=== PATIENT | female | born 1985 | race Caucasian/White ===

== ENCOUNTER 2017-03-18 05:27 | Outpatient (CLI) | payer BC ==
[~2017-03-18] VITALS: Ht 165.1 cm; Wt 107.0 kg
[~2017-03-18 05:27] MED LIST: Docusate Sodium PO; FERR325C PO; Hydrocodone Bit/Acetaminophen PO; IBUP800T26 PO; PREN-93 PO
[2017-03-19] MEDS ORDERED: IBUP-1773 PO (10:53)
[2017-03-19] MEDS ORDERED: Methylergonovine Maleate PO (10:53)
[2017-03-19] MEDS ORDERED: HYDR-3812 PO (10:53)
== END 2017-03-18 11:37 ==
LOC: PREOP 05:27
PROVIDERS: ATTEND Obstetrics & Gynecology
DX: Z01.818 Encounter for other preprocedural examination (principal); O02.0 Blighted ovum and nonhydatidiform mole

== ENCOUNTER 2017-03-19 09:22 | Day surgery (SDC) | payer BC ==
[~2017-03-19] VITALS: Ht 165.1 cm; Wt 107.0 kg
[2017-03-19] MEDS ORDERED: ceFAZolin 1 GM/NS 50 ML IVPB IV ONE ×2 (09:45)
[2017-03-19] MEDS ORDERED: LACTATED RINGERS 1,000 ML IV PRN (09:50)
[2017-03-19] MEDS ORDERED: LACTATED RINGERS 1,000 ML IV ONE (09:56)
[2017-03-19] MEDS ORDERED: DEXAMETHASONE 10 MG/ML (DECADRON) 1 ML VIAL ONE (09:56)
[2017-03-19] MEDS ORDERED: SEVOFLURANE (ULTANE) 15 ML INHAL SOLN ONE (09:56)
[2017-03-19] MEDS ORDERED: fentaNYL INJECTION 100 MCG/2 ML AMP ONE (09:56)
[2017-03-19] MEDS ORDERED: ONDANSETRON 4 MG/2 ML (SDV) Z0FRAN ONE (09:56)
[2017-03-19] MEDS ORDERED: LIDOCAINE PF 2% 5 ML (XYLOCAINE) VIAL ONE (09:56)
[2017-03-19] MEDS ORDERED: proPOfol 200 MG/20 ML (DIPRIVAN) VIAL IV ONE (09:56)
[2017-03-19] MEDS ORDERED: MIDAZOLAM 2 MG/2 ML (VERSED) VIAL ONE (09:56)
--- NOTE | 2017-03-19 09:56 | Progress Note-Pre Operative ---
Pre-Operative Progress Note H&P Reviewed The H&P was reviewed, patient examined and no changes noted. Date Seen by Provider: Mar 19, 2017 Time Seen by Provider: 10:00 Date H&P Reviewed: Mar 19, 2017 Time H&P Reviewed: 07:30 Pre-Operative Diagnosis: miss , blighted ovum DENISSE REEDER DO Mar 19, 2017 09:56
[2017-03-19] MEDS ORDERED: ONDANSETRON 4 MG/2 ML (SDV) Z0FRAN IV ONE (10:15)
[2017-03-19] MEDS ORDERED: FAMOTIDINE 20MG/2ML IV (PEPCID) IV ONE (10:15)
[2017-03-19] MEDS ORDERED: KETOROLAC 30 MG/ML VIAL IVP ONE ×2 (10:40→11:00)
--- NOTE | 2017-03-19 10:52 | Operative Report ---
Operative Report Date of Procedure/Surgery Mar 19, 2017 Surgeon (s) DENISSE REEDER DO Manager Of Sustainability (s): none Post-Operative Diagnosis blighted ovum Procedure Performed suction dilation and curettage Description of Procedure Anesthesia Type: General Estimated blood loss (mL): 50 Specimen(s) collected/removed products of conception Description of the Procedure with informed consent, the patient was taken to the operating where general anesthesia was found to be adequate. she was then prepped and draped in the usual sterile fashion. A straight cath was used to catheterize the bladder. Speculum was placed in the vagina. The cervix was closed. The anterior lip of the cervix was grasped with a tenaculum. The cervix was gently dilated with Hubert dilators. I then inserted an 8 curved suction curette and a gentle suction curette was done removing products of conception. I then followed this with a sharp curette until a gritty texture was felt and followed this with a final suction curette to remove any additional debris. The tenaculum was removed from the cervix. The patient was awakened and taken to the recovery room in a stable condition. There was minimal bleeding Sponge and instrument count was correct times 2. Findings of the Procedure closed cervix products of conception Allergies and Home Medications Allergies Coded Allergies: Penicillins (Unverified Allergy, Intermediate, HIVES, 06/25/14) Home Medications Hydrocodone/Acetaminophen 1 Each Tablet, 1 TAB PO Q4H PRN for PAIN-MODERATE, #12 Prescribed by: DENISSE REEDER on 03/19/17 1053 Ibuprofen 600 Mg Tablet, 600 MG PO Q6HR, #40 Prescribed by: DENISSE REEDER on 03/19/17 1053 [Methylergonovine Maleate] 0.2 MG TAB, 0.2 MG PO QID, #12 take until gone Prescribed by: DENISSE REEDER on 03/19/17 1053 DENISSE REEDER DO Mar 19, 2017 10:52
[2017-03-19] MEDS ORDERED: HYDR-3812 PO (10:53)
[2017-03-19] MEDS ORDERED: IBUP-1773 PO (10:53)
[2017-03-19] MEDS ORDERED: Methylergonovine Maleate PO (10:53)
--- NOTE | 2017-03-19 10:55 | Discharge Inst-Women's Service ---
Discharge Inst-Women's Serv Depart Medication/Instructions New, Converted or Re-Newed RX: RX on Chart Final Diagnosis blighted ovum Consults/Follow Up Additional Follow Up: Yes (1 week with Lori Grigsby) Activity Activity: Activity as Tolerated Driving Instructions: No Driving for 24 Hours NO SMOKING: NO SMOKING Nothing Inside Vagina: No Douching, No [place], No Tampons Other Activity may try to achieve after the next dilation and curettage (usually 4-6 weeks after miscarriage) Diet Discharge Diet: No Restrictions Symptoms to Report to : Swelling Increased, Bleeding Excessive, Pain Increased, Fever Over 101 Degrees F, Vaginal Bleeding Increase, Vaginal Discharge Foul For Any Problems or Questions: Contact Your Physician DENISSE REEDER DO Mar 19, 2017 10:55
[2017-03-19] MEDS ORDERED: ONDANSETRON 4 MG/2 ML (SDV) Z0FRAN IVP PRN (11:00)
[2017-03-19] MEDS ORDERED: morphine INJ 10 MG/ML 1ML (SYR OR VIAL) IVP PRN (11:00)
[2017-03-19] MEDS ORDERED: PROMETHAZINE INJ 25 MG/ML (PHENERGAN) AMP IVP PRN (11:00)
[2017-03-19] MEDS ORDERED: HYDROcodone/APAP 5 MG/325 MG (LORTAB) TAB PO PRN (11:00)
[2017-03-19] MEDS ORDERED: MEPERIDINE (DEMEROL) INJ 50 MG/ML IVP PRN (11:00)
[2017-03-19 11:35] VITALS: BP 127/81
[2017-03-19] MEDS ORDERED: IBUPROFEN 600 MG (MOTRIN) TAB PO SCH (12:00)
[2017-03-19 12:05] VITALS: BP 110/65
--- OUTSIDE RECORDS SUMMARY | 2017-03-19 12:17 | XMS REPORT | Continuity of Care Document ---
Author Author [facility] Organization [facility] Address Unknown Phone Unavailable Allergies Active Description Code Type Severity Reaction Onset Reported/Identified Relationship to Patient Clinical Status Yes Penicillins [id number] Drug Allergy Moderate HIVES 06/25/2014 Medications Problems Date Dx Coded Attending Type Code Diagnosis Diagnosed By 06/27/2014 DENISSE REEDER DO Ot 645.11 POST TERM PREG, DELIV W/WO MENTION OF AN 06/27/2014 DENISSE REEDER DO Ot 648.91 OTH CURR COND-DELIVERED 06/27/2014 DENISSE REEDER DO Ot 656.81 FET/PLAC PROB NEC-DELIV 06/27/2014 DENISSE REEDER DO Ot 659.71 ABN DEL FET HT RT/RHYTHM,W OR W/O MENTIO 06/27/2014 DENISSE REEDER DO Ot V02.51 GROUP B STREPT CARRIER/SUSPECTED CARRIER 06/27/2014 DENISSE REEDER DO Ot V06.1 [id number], COMBINED [ 06/27/2014 DENISSE REEDER DO Ot V27.0 DELIVER-SINGLE LIVEBORN Procedures Code Description Performed By Performed On 72.71 VACUUM EXT DEL W EPISIOT 06/26/2014 Results Encounters ACCT No. Visit Date/Time Discharge Status Pt. Type Provider Facility Loc./Unit Complaint [id number] 06/25/2014 13:11:00 2013 23:54:00 DIS Inpatient DENISSE REEDER DO [facility] LDRP LABOR [id number] 03/19/2017 11:00:00 PEN Preadmit DENISSE REEDER DO [facility] SDC BLIGHTED OVUM
[2017-03-19 12:35] VITALS: BP 114/74
[2017-03-19 13:00] VITALS: BP 114/74
[2017-03-19] MEDS ORDERED: METHYLERGONOVINE 0.2 MG (MEHTERGINE) TAB PO SCH (13:00)
[2017-03-19] MEDS ORDERED: ESTRADIOL 0.1 MG PATCH (CLIMARA) TOP SCH (14:30)
== END 2017-03-19 13:00 | disposition home or self-care (01) ==
LOC: SDC 09:22
PROVIDERS: ATTEND Obstetrics & Gynecology
DX: O02.0 Blighted ovum and nonhydatidiform mole (principal); Z87.891 Personal history of nicotine dependence
CPT/HCPCS: 86850; 86900; 86901; 87081; 88305